=== PATIENT | male | born 1985 | race Caucasian/White ===

== ENCOUNTER 2020-04-06 01:04 | Inpatient (IN) | payer OTHER ==
[~2020-04-06] VITALS: Ht 180.3 cm; Wt 215.0 kg
[2020-04-06 01:56] LABS: BASO % 0.3 % (0.0-2.0); EOS # 0.2 (0.0-0.7); EOS % 1.4 % (0-4.0); GRAN # 8.3 (1.4-6.5); GRAN % 79.9 % (42.2-75.2); HEMATOCRIT 42.7 % (42.0-52.0); HEMOGLOBIN 13.1 g/dl (13.5-18.0); LYMPH # 1.3 (1.2-3.4); MEAN CELL VOLUME 86 fl (80.0-100.0); MEAN CORPUSCULAR HEMOGLOBIN 26 pg (27.0-31.0); MEAN CORPUSCULAR HGB CONC 31 g/dl (33.0-37.0); MEAN PLATELET VOLUME 10.5 fl (7.4-10.4); MONO # 0.6 (0.1-0.6); MONO % 6.1 % (1.7-9.3); PLATELET COUNT 234 K/mm3 (130-400); RED BLOOD COUNT 4.98 M/mm3 (4.20-5.60); REDCELL DISTRIBUTION WIDTH-CV 14.8 % (11.5-14.5)
[2020-04-06 02:06] LABS: ALBUMIN 4.4 gm/dL (3.5-5.0); BILIRUBIN,TOTAL 0.5 mg/dL (0.0-1.0); CALCIUM 9.5 mg/dL (8.4-10.2); CREATININE, serum 0.79 (0.66-1.25); POTASSIUM 4.2 mmol/L (3.4-5.0); TOTAL PROTEIN 7.7 gm/dL (6.4-8.2)
[2020-04-06 04:05] LABS: TROPONIN-I < 0.012 ng/mL (0.000-0.035)
[2020-04-06 05:19] LABS: ARTERIAL BLD GAS O2 SATURATION 97.1 % (92-100); ARTERIAL BLD GAS TCO2 CT 29.7; ARTERIAL BLOOD GAS BASE EXCESS 0.8 (-2-2); ARTERIAL BLOOD GAS PCO2 55.3 mmHg (35-45); ARTERIAL BLOOD GAS PO2 95.5 mmHg (80-100); ARTERIAL BLOOD GAS pH 7.32 (7.35-7.45)
[2020-04-06] MEDS ORDERED: TYLENOL 325MG325 MG PO (06:12)
[2020-04-06] MEDS ORDERED: DUO-KAPS1 CAP PO (06:13)
[2020-04-06] MEDS ORDERED: POTASSIUM GLUC595 M1 PO (06:13)
[2020-04-06] MEDS ORDERED: HCTZ 25MG TAB25 MG PO (06:14)
[2020-04-06] MEDS ORDERED: PRINIVIL40 MG PO (06:14)
[2020-04-06] MEDS ORDERED: GLUCOPHAGE850 MG/TAB PO (06:15)
[2020-04-06] MEDS ORDERED: CLARITIN 1010 MG/TAB PO (06:15)
[2020-04-06] MEDS ORDERED: BENADRYL25 M2 PO (06:15)
[2020-04-06 06:50] LABS: ARTERIAL BLD GAS O2 SATURATION 96.5 % (92-100); ARTERIAL BLD GAS TCO2 CT 28.2; ARTERIAL BLOOD GAS BASE EXCESS 0.1 (-2-2); ARTERIAL BLOOD GAS HCO3 26.6 meq/L (22-26); ARTERIAL BLOOD GAS PCO2 50.6 mmHg (35-45); ARTERIAL BLOOD GAS PO2 89.3 mmHg (80-100); ARTERIAL BLOOD GAS pH 7.34 (7.35-7.45)
[2020-04-06 10:43] LABS: C-REACTIVE PROTEIN 4.2 mg/dL (0.0-0.9)
[2020-04-06 10:52] LABS: TROPONIN-I 3 HR POST INITIAL < 0.012 ng/mL (0.000-0.034)
[2020-04-06 17:14] VITALS: BP 111/77; PULSE 91; TEMP 98.1
--- NOTE | 2020-04-06 17:20 | NUR ---
Patient up from ER. Alert and oriented x 3. Assessment complete. Denies pain at this time. Patient oriented to room and bed, patient incontinent of urine.
--- NOTE | 2020-04-06 18:22 | NUR ---
Contacted [facility] for diet order; contacted RT for ABG order.
--- NOTE | 2020-04-06 18:35 | NUR ---
Contacted Dr. Elizabeth of consult.
--- NOTE | 2020-04-06 18:57 | NUR ---
Reported off to mold shifter.
[2020-04-06 19:17] LABS: ARTERIAL BLD GAS O2 SATURATION 93.3 % (92-100); ARTERIAL BLD GAS TCO2 CT 29.7; ARTERIAL BLOOD GAS HCO3 28.2 meq/L (22-26); ARTERIAL BLOOD GAS PCO2 49.7 mmHg (35-45); ARTERIAL BLOOD GAS pH 7.37 (7.35-7.45)
--- NOTE | 2020-04-06 20:15 | NUR ---
Patient alert and oriented x 4, and able to make needs known. Denies having pain and discomfort at this time. Peripheral INT to right AC. Site without redness, warmth, swelling, and pain. Reports some SOB with exertion. LS expiratory wheezes. RT decreased O2 to 2 L/min via NC. BIPAP while sleeping. Respirations even and unlabored. HRR. Telemetry: normal sinus. Capillary refill less than 3 seconds. Non-tenting skin turgor. BSAx4. Abdomen soft and non-tender. 3+ edema BLE. Patient has scaling/flaking BLE and bilateral feet, with scabs and purple discoloration. Patient reports this is his normal eczema. Voices no questions, needs, or concerns at this time. Resting in bed with call light within reach.
[2020-04-06 20:18] VITALS: BP 123/67; PULSE 93; TEMP 98.2
[2020-04-07] VITALS (7 sets, daily range): BP systolic 127–147; BP diastolic 51–80; PULSE 66–86; TEMP 97.6–98.5
--- NOTE | 2020-04-07 06:24 | NUR ---
Patient has been resting in bed with call light within reach. Incontinent of bladder. Perineal hygience care provided. Patient has been wearing BIPAP tonight. Voices no questions, needs, or concerns at this time. Resting in bed with call light within reach.
--- NOTE | 2020-04-07 10:27 | NUR ---
Pt assessment complete. Pt is laying in bed wearing bipap upon entry. Replaced with 2L NC to eat and take medications. Pt is A/O x4. His breathing is currently even and unlabored. SOB has improved. Reports a slight headache. Pt incontinent of urine, full bed change provided as well as pericare. Pt has no needs at this time. Will continue to monitor.
[2020-04-07 11:25] LABS: ARTERIAL BLD GAS O2 SATURATION 92.8 % (92-100); ARTERIAL BLD GAS TCO2 CT 33.1; ARTERIAL BLOOD GAS BASE EXCESS 4.8 (-2-2); ARTERIAL BLOOD GAS HCO3 31.5 meq/L (22-26); ARTERIAL BLOOD GAS PCO2 54.9 mmHg (35-45); ARTERIAL BLOOD GAS pH 7.38 (7.35-7.45)
--- NOTE | 2020-04-07 14:37 | NUR ---
Assessment complete. Patient has 2.5L oxygen via nasal cannula. Patient has weeping ulcers on bilateral ankles. .
--- NOTE | 2020-04-07 15:41 | NUR ---
Store Cashier met with patient to discuss discharge planning. Patient states he is homeless and had been staying in a hotel in [place], [place] where he has lived for about 15 years. Patient was living with his mom, Shanell (ph#[phone]) in an apartment in [place] but was evicted because they could not keep it clean. Patient states he uses the [facility] in [place] for primary care. Patient does not have insurance coverage and has no income. Patient has a nebulizer and may require new medications upon discharge. Patient denies any other DME usage. Patient states he and his mom were visiting his uncle, Shyam in [place] and now his mom, Shanell is at the [place] [facility]. Patient states he has no where to go upon discharge. CLARA contacted Kelsi, Director of [facility] who confirmed Shanell is a resident. Per Kelsi, Shanell cannot care for herself and an Adult Protective Services report will be made on her as she needs skilled care. Kelsi advised they are at capacity at this time. CLARA contacted [facility] about PT/OT orders. CLARA made report to Adult Protective Services, Intake #[id number]. CLARA collaborated with Kamille Financial Counselor who is working on a Medicaid application for patient but needs his social security number and an address for patient. CLARA will attempt to obtain patient's SS # from patient.
--- NOTE | 2020-04-07 15:50 | NUR ---
Pt back on the bipap, discussed with the patient about wearing bipap as tolerated through the day. Pt agreeable.
--- NOTE | 2020-04-07 16:24 | NUR ---
Pt's O2 sat's 89% on 2.5L O2 via NC. Turned up to 3L O2 by nursing staff.
--- NOTE | 2020-04-07 21:15 | NUR ---
Patient assessed at this time. Alert and oriented x 4, and able to make needs known. Patient using urinal tonight. Peripheral INT to right AC flushed. Site without redness, warmth, swelling, and pain. Reports SOB and dyspnea with exertion. LS labored with activity. LS CTA in upper lobes, diminished in lower lobes. Cough. HRR. Telemetry: normal sinus. Capillary refill less than 3 seconds. Non-tenting skin turgor. BSAx4. Abdomen soft and non-tender. 2+ edema BLE. Resting in bed with call light within reach.
[2020-04-08 02:56] VITALS: BP 146/72; PULSE 57; TEMP 98.6
[2020-04-08 05:39] LABS: ARTERIAL BLD GAS O2 SATURATION 97.7 % (92-100); ARTERIAL BLD GAS TCO2 CT 34.4; ARTERIAL BLOOD GAS BASE EXCESS 6.4 (-2-2); ARTERIAL BLOOD GAS HCO3 32.7 meq/L (22-26); ARTERIAL BLOOD GAS PO2 104.9 mmHg (80-100)
--- NOTE | 2020-04-08 05:58 | NUR ---
Patient has denied having pain and discomfort this shift. Has used BIPAP. Patient used urinal a few times during the night, but has also been incontinent in bed without telling staff. Perineal hygiene care provided. Voices no questions, needs, or concerns at this time. Resting in bed with call light within reach.
[2020-04-08 06:22] LABS: EOS % 0.1 % (0-4.0); GRAN # 9.2 (1.4-6.5); GRAN % 82.5 % (42.2-75.2); HEMATOCRIT 43.8 % (42.0-52.0); HEMOGLOBIN 13.1 g/dl (13.5-18.0); LYMPH # 1.4 (1.2-3.4); LYMPH % 12.4 % (20.0-51.0); MEAN CELL VOLUME 88 fl (80.0-100.0); MEAN CORPUSCULAR HEMOGLOBIN 26 pg (27.0-31.0); MEAN CORPUSCULAR HGB CONC 30 g/dl (33.0-37.0); MEAN PLATELET VOLUME 10.8 fl (7.4-10.4); MONO # 0.5 (0.1-0.6); MONO % 4.6 % (1.7-9.3); PLATELET COUNT 243 K/mm3 (130-400); RED BLOOD COUNT 4.98 M/mm3 (4.20-5.60)
[2020-04-08 06:34] LABS: CALCIUM 9.4 mg/dL (8.4-10.2); CREATININE, serum 0.67 (0.66-1.25); POTASSIUM 4.6 mmol/L (3.4-5.0)
[2020-04-08 07:17] VITALS: BP 134/68; PULSE 65; TEMP 98.2
--- NOTE | 2020-04-08 08:52 | NUR ---
PATIENT DOES QUALIFY FOR HOME O2, DURING EXERTION SP02 >90%.
[2020-04-08 11:39] VITALS: BP 130/66; PULSE 65; TEMP 98.6
--- NOTE | 2020-04-08 13:49 | NUR ---
Primary nurse was assisted with [id number] patient care by [facility] student Rosalino Arredondo and [facility] instructor Yessi Rivera RN-.
--- NOTE | 2020-04-08 15:16 | NUR ---
PATIENT DOES NOT REQUIRE OXYGEN FOR AMBILATION.
[2020-04-08 16:13] VITALS: BP 127/56; PULSE 72; TEMP 98.1
--- NOTE | 2020-04-08 16:54 | NUR ---
Independent Agent Music Education met with patient to discuss discharge planning. CLARA advised that [facility] is currently full. Patient states he is unsure where he will go. Patient also states he has no clothes. Patient states all of his belongings are in [place] at the apartment he was evicted from. Patient states he has 30 days to gather his belongings. CLARA asked patient how he got to [place] and he states his late father's ex , Theresa drove he and his mom here. CLARA asked patient for Theresa's phone number and patient states he only contacts her by Facebook. Patient to contact Theresa to see if he can stay with her. CLARA contacted patient's uncle Shyam who advised he can't take in patient as his landlord does not allow overnight guests. Shyam gave CLARA Cardenas's phone number (ph#[phone]). CLARA will follow up with Theresa tomorrow on discharge placement. Kamille with financial counseling has submitted patient's medicaid application. CLARA will continue to follow.
--- NOTE | 2020-04-08 18:34 | NUR ---
PATIENT HAS HAD AN UNEVENTFUL DAY. PATIENT HAS NO CHANGE IN CONDITION. PATIENT DOES NOT NEED ANY OXYGEN OR HOME OXYGEN AT THIS TIME. PATIENT USES HIS BIPAP WHEN HE IS SLEEPING. PATIENT'S HEELS ARE CRACKED, AND GENERALIZED ON HIS BODY HE HAS SORES FROM HIS [employer]. PATIENT IS ON PRESNISONE. PATIENT IS RESTING IN BED WATCHING IN TV. DENIES ANY NEEDS. CALL LIGHT IN REACH. WILL REPORT OFF TO PERSONNEL SCHEDULER.
[2020-04-08 19:22] VITALS: BP 125/64; PULSE 69; TEMP 97.9
--- NOTE | 2020-04-08 20:20 | NUR ---
Patient assessed at this time. Alert and oriented. Denies having pain and discomfort. Peripheral INT to right AC. Site without redness, warmth, swelling, and pain. Denies SOB and dyspnea. On oxygen at 3 L/min via NC, and wears BIPAP at night. LS expiratory wheezing in upper lobes, diminished in lower. Respirations even and unlabored. HRR. Telemetry in place. Capillary refill less than 3 seconds. Non-tenting skin turgor. BSAx4. Abdomen soft and non-tender. 1+ edema BLE. Patient has crusting/sores all over. Occasionally incontinent of bladder, but does not let staff know when incontinent. Resting in bed with call light within reach.
[2020-04-08 23:42] VITALS: BP 116/64; PULSE 64; TEMP 98.3
[2020-04-09] VITALS (7 sets, daily range): BP systolic 105–136; BP diastolic 54–78; PULSE 64–88; TEMP 97.7–99.6
[2020-04-09 07:25] LABS: BASO % 0.1 % (0.0-2.0); EOS % 0.4 % (0-4.0); GRAN # 4.5 (1.4-6.5); HEMATOCRIT 45.8 % (42.0-52.0); HEMOGLOBIN 13.8 g/dl (13.5-18.0); LYMPH # 2.8 (1.2-3.4); LYMPH % 34.9 % (20.0-51.0); MEAN CELL VOLUME 88 fl (80.0-100.0); MEAN CORPUSCULAR HEMOGLOBIN 27 pg (27.0-31.0); MEAN CORPUSCULAR HGB CONC 30 g/dl (33.0-37.0); MEAN PLATELET VOLUME 11.2 fl (7.4-10.4); MONO # 0.7 (0.1-0.6); MONO % 8.4 % (1.7-9.3); PLATELET COUNT 206 K/mm3 (130-400); RED BLOOD COUNT 5.21 M/mm3 (4.20-5.60); REDCELL DISTRIBUTION WIDTH-CV 14.8 % (11.5-14.5)
--- NOTE | 2020-04-09 07:32 | NUR ---
Patient has been resting in bed with call light within reach. Has voiced no questions, needs, or concerns at this time. Has been wearing BIPAP at night.
[2020-04-09 07:37] LABS: CALCIUM 9.3 mg/dL (8.4-10.2); CREATININE, serum 0.7 (0.66-1.25); POTASSIUM 3.9 mmol/L (3.4-5.0)
[2020-04-09] MEDS ORDERED: RT Anoro Ellipta IH (09:26)
[2020-04-09] MEDS ORDERED: SINGULAIR 110 MG/TAB PO (09:26)
[2020-04-09] MEDS ORDERED: [UNRECOGNIZED DRUG - OTHER] IH (09:26)
[2020-04-09] MEDS ORDERED: PREDNISONE20 MG PO (09:27)
--- NOTE | 2020-04-09 09:27 | NUR ---
Patient's Pre and Post Spirometry cancelled at this time. Per Dr. Elizabeth schedule as outpatient. 4 weeks of good control of symptoms are suggested. Paolo Amezquita, JAVASCRIPT APPLICATION DEVELOPER
--- NOTE | 2020-04-09 10:03 | NUR ---
Patient has stuent nurse assisting with cares. Student nurse going to care for patient in giving him a shower. Patient had episode of incontinent urine. Urine was on the floor. Hospitalsit rounded. TELE DC. Plan of care was reviewed.
--- NOTE | 2020-04-09 13:33 | NUR ---
Primary nurse was assisted with [id number] patient care by [facility] student Rosalino Arredondo and [facility] instructor Yessi Rivera RN-.
[2020-04-09] MEDS ORDERED: OXYGEN NASAL.CANN (13:40)
[2020-04-09] MEDS ORDERED: RT Albuterol HFA MDI IH (16:07)
--- NOTE | 2020-04-09 16:49 | NUR ---
Animation Camera Operator attended clinical rounds with the team and patient is ready to be discharged today. CLARA attempted to contact Theresa, however her number is not in service. CLARA contacted the [facility] and was advised they are still at capacity at this time. CLARA met with patient to provide this update. Patient called Theresa through [employer] and she inquired if [facility] could get patient into an apartment. Theresa states patient could stay with her in her RV, however she is not sure patient will fit in her bathroom due to his size. CLARA advised Theresa and patient that [facility] will not place patient in an apartment until he has an appointment with them and that it's a process. Theresa states she will make some calls. CLARA followed up with patient and advised that he is ready to be discharged and Theresa needs to pick him up as she is the person who brought him to [place]. Patient states he will call Theresa. CLARA followed up again with patient who states Theresa will pick him up tonight. CLARA completed Med Voucher for patient totaling $14.72. Patient states Theresa will take him tomorrow if he can't be there by 6:00pm. CLARA contacted Kj at [facility] to advise patient will tow picker tomorrow and Kj advised this was fine. CLARA faxed referral to [facility] as they are closed this afternoon. CLARA provided patient with contact information for [facility] and advised records have been faxed to them. Patient qualifies for 1 liter of oxygen. CLARA faxed Financial Assistance Application and referral to [facility]. Krystyna at [facility] will bring up tanks to patient's room. [facility] cannot set up home system until patient determines where he will be staying. Patient states Theresa is picking him up tonight but is not sure where he will be this weekend. Oxygen tanks have been delivered to patient's room and patient states Theresa will be here at some point to pick him up.
--- NOTE | 2020-04-09 17:58 | NUR ---
All discharge paperwork completed. Patient still has not been able to get ahold of Theresa. He has been on the phone though.
--- NOTE | 2020-04-09 21:15 | NUR ---
Pt assessment completed and documented. Pt states he is unable to get ride tonight because his rides car is broken down. Will notify limehouse worker and medication reconciliation technician provider to that pt is unable to discharge tonight. Encouraged pt to continue to find ride to discharge tomorrow. Pt currently resting in bed watching tv. Alert and oriented x4. Denies pain. INT to right AC CDI. Pt denies any other needs/concerns. Call light within reach. Will continue to monitor
[2020-04-10 03:19] VITALS: BP 119/61; PULSE 66; TEMP 98
--- NOTE | 2020-04-10 05:22 | NUR ---
Pt had uneventful shift. Pt rested well overnight. No complaints of pain. Currently resting in bed at this time. Call light within reach
[2020-04-10 09:02] VITALS: BP 114/59; PULSE 79; TEMP 98.1
[2020-04-10 12:50] VITALS: BP 128/63; PULSE 74; TEMP 98.7
--- NOTE | 2020-04-10 13:32 | NUR ---
SW update, [place] is [place] to [place] but his ride (mini) did not show. SW visited patient about his plan. Patient reports that Mini's car broke down. SW offered taxi voucher to Mini's home. Patient reports that Mini resides in [place] in . SW requested patient to provide an address for the taxi voucher. Patient reports that he was told that she would be available at 2:00 p.m. Patient reports that Mini is helping him fin a place to stay. sw offered the emergency [place] is [facility], if he can get a ride. SW educated that the [facility] [place] not accepting anyone. SW educated the patient on his options. Patient reports that he can not go to [place] because he needs to stay local to help his mother. Patient was prompted on if he could stay with his mother. Patient reports that his mother is also in a [place] at this time. SW educated patient that he could not stay another night if he is nt being treated. Patient was reported to have stable discharge although homeless. Patient declines using emergency [place] option in [place]. CLAAR offered taxi, if patient is unable to secure placement, he would have to use other resources at his disposal. Offered resource sheet for the local area. Notifed house and nurse. Nothing follows.
--- NOTE | 2020-04-10 15:30 | NUR ---
Discharge teaching completed. Discussed discharge medications, follow up appointments, and discharge instructions. Patient denied questions or concerns. INT removed, catheter intact, hemostasis achieved. Patient dressed and gathered personal belongings. Patient escorted to ED entrance by social work, manager data warehouse, and security.
== END 2020-04-10 15:30 | disposition home or self-care (01) | DRG 189 ==
LOC: COL.ER 01:04 → MEDICAL 03:44
PROVIDERS: Emergency Medicine; Internal Medicine Pulmonary Disease; Nurse Practitioner Family; Physician Assistant; Student in an Organized Health Care Education/Training Program; ADMIT Hospitalist
PROC: 5A09357 Assistance with Respiratory Ventilation, Less than 24 Consecutive Hours, Continuous Positive Airway Pressure (ICD-10-PCS; principal; 2020-04-06)
DX: J96.01 Acute respiratory failure with hypoxia (principal); J45.901 Unspecified asthma with (acute) exacerbation; J44.1 Chronic obstructive pulmonary disease with (acute) exacerbation; E66.2 Morbid (severe) obesity with alveolar hypoventilation; E87.2 Acidosis; Z68.44 Body mass index [BMI] 60.0-69.9, adult; E11.9 Type 2 diabetes mellitus without complications; Z20.828 Contact with and (suspected) exposure to other viral communicable diseases; F17.210 Nicotine dependence, cigarettes, uncomplicated; J96.02 Acute respiratory failure with hypercapnia; R30.0 Dysuria; L30.9 Dermatitis, unspecified; L30.2 Cutaneous autosensitization; Z91.14 Patient's other noncompliance with medication regimen; Z79.84 Long term (current) use of oral hypoglycemic drugs
CPT/HCPCS: OP; 99232-AI; 99239; A9284; G0378; J1100; J1650; J1815; J2920; J2930; J7512